=== PATIENT | female | born 1965 | race Caucasian/White ===

== ENCOUNTER → 2022-07-25 | Outpatient (CLI) | payer OTHER ==
[2022-07-25 16:17] LABS: HEMOGLOBIN A1c 5.3 %
[2022-07-25 18:13] LABS: ALT/SGPT 34 U/L (12-78); BILIRUBIN,TOTAL 0.3 MG/DL (0.2-1.0); BLOOD UREA NITROGEN 22 MG/DL (7-18); CALCIUM LEVEL 9.6 MG/DL (8.5-10.1); CARBON DIOXIDE LEVEL 32 MEQ/L (21-32); CHLORIDE LEVEL 104 MEQ/L (98-107); CHOLESTEROL LEVEL 183 MG/DL (<200); CHOLESTEROL RISK RATIO 3.588 (<5); CREATININE FOR GFR 1.12 MG/DL (0.55-1.30); FREE T4 0.96 NG/DL (0.76-1.46); GLUCOSE, FASTING 99 MG/DL (70-100); HDL CHOLESTEROL 51 MG/DL (>40); LDL CHOLESTEROL 93 MG/DL (<100); NON-HDL-C 132 MG/DL; POTASSIUM SERUM 4.5 MEQ/L (3.5-5.1); SODIUM LEVEL 138 MEQ/L (136-145); TOTAL PROTEIN 7.4 GM/DL (6.4-8.2); TRIGLYCERIDES LEVEL 194 MG/DL (<150)
[2022-07-25 19:55] LABS: HEPATITIS C VIRUS ABY INDEX < 0.0 INDEX (<0.8)
== END ==
LOC: M PLALAB 12:59
PROVIDERS: ATTEND Family Medicine
DX: E66.9 Obesity, unspecified (principal); R03.0 Elevated blood-pressure reading, without diagnosis of hypertension

== ENCOUNTER → 2022-08-21 | Outpatient (CLI) | payer OTHER | LOC: M WHC 07:28 | PROVIDERS: ATTEND Family Medicine | DX: Z12.31 Encounter for screening mammogram for malignant neoplasm of breast (principal) ==

== ENCOUNTER → 2023-03-12 | Outpatient (CLI) | payer OTHER ==
[2023-03-12 14:56] LABS: CALCIUM LEVEL 9.6 MG/DL (8.3-10.6); CREATININE FOR GFR 1.04 MG/DL (0.55-1.30); CREATININE, URINE 154.4 MG/DL; GLOMERULAR FILTRATION RATE 57.5 (>45); MALB URINE SIEMENS < 3.0 MG/L; MAU/CREAT RATIO 1.9 MCG/MG (0.0-30.0); POTASSIUM SERUM 5.4 MMOL/L (3.5-5.1)
== END ==
LOC: M PLALAB 09:49
PROVIDERS: ATTEND Family Medicine
DX: N18.31 Chronic kidney disease, stage 3a (principal)

== ENCOUNTER 2023-06-28 12:21 | Emergency (ER) | payer OTHER ==
[~2023-06-28] VITALS: Ht 162.6 cm; Wt 104.6 kg
[2023-06-28] MEDS ORDERED: HYDR12CA PO (12:30)
[2023-06-28] MEDS ORDERED: LEXA1TAB2 PO ×2 (12:30)
[2023-06-28] MEDS ORDERED: BUSP10TA79 PO (12:30)
[2023-06-28] MEDS ORDERED: OMEP-173 PO (12:30)
[2023-06-28] MEDS ORDERED: BUPR150T12 PO (12:30)
[2023-06-28] MEDS ORDERED: HYDR50TA70 (12:30)
[2023-06-28 13:30] LABS: HEMATOCRIT 40.9 % (36.0-47.0); HEMOGLOBIN 13.7 g/dl (12.0-15.5); MEAN CORPUSCULAR HEMOGLOBIN 30.1 pg (27.0-33.0); MEAN CORPUSCULAR HGB CONC 33.5 g/dl (32.0-36.5); MEAN CORPUSCULAR VOLUME 89.9 fl (80.0-96.0); PLATELET COUNT, AUTOMATED 385 10^3/uL (150-450); RED BLOOD COUNT 4.55 10^6/uL (4.00-5.40); WHITE BLOOD COUNT 10.5 10^3/uL (4.0-10.0)
[2023-06-28 13:52] LABS: ERYTHROCYTE SEDIMENTATION RATE 83 mm/hr (0-30)
[2023-06-28 13:54] LABS: HEMOGLOBIN A1c 5.7 % (4.0-6.0)
[2023-06-28 14:01] LABS: BLOOD UREA NITROGEN 10 MG/DL (9-23); CALCIUM LEVEL 8.9 MG/DL (8.3-10.6); CARBON DIOXIDE LEVEL 32 MMOL/L (20-31); CHLORIDE LEVEL 98 MMOL/L (98-107); CREATININE FOR GFR 0.79 MG/DL (0.55-1.30); GLOMERULAR FILTRATION RATE > 60.0 (>45); GLUCOSE, FASTING 112 MG/DL (74-106); POTASSIUM SERUM 5.2 MMOL/L (3.5-5.1); SODIUM LEVEL 137 MMOL/L (136-145)
[2023-06-28] MEDS ORDERED: NS 1,000 ML IV ONE (14:25)
[2023-06-28] MEDS ORDERED: VANCOMYCIN HCL 2,000 MG in D5W 500 ML IV ONE (15:15)
[2023-06-28] MEDS ORDERED: CEPH500C PO (16:00)
[2023-06-28] MEDS ORDERED: BACT800T5 PO (16:00)
[2023-06-28] MEDS ORDERED: VANCOMYCIN HCL 1,000 MG, VIAL MATE ADAPTER 1 EACH in D5W 250 ML IV ONE ×2 (16:00→17:00)
[2023-06-28 16:01] LABS: URIC ACID 6.2 MG/DL (3.1-7.8)
[2023-06-28] MEDS ORDERED: BOOSTRIX VACCINE (TETANUS/DIPHTH/ACEL. PERTUSSIS) 0.5ML SYR IM ONE (16:50)
[2023-06-28 18:48] VITALS: BP 136/87; TEMP 98.3; O2SAT 100
== END 2023-06-28 18:53 | disposition home or self-care (01) ==
LOC: M ED 12:21
DX: L03.031 Cellulitis of right toe (principal); L03.115 Cellulitis of right lower limb; Z79.899 Other long term (current) drug therapy

== ENCOUNTER 2023-06-30 15:21 | Inpatient (IN) | payer OTHER ==
[~2023-06-30] VITALS: Ht 162.6 cm; Wt 105.1 kg
[~2023-06-30 15:21] MED LIST: BACT800T5 PO; BUPR150T12 PO; BUSP10TA79 PO; CEPH500C PO; HYDR12CA PO; HYDR50TA70; LEXA1TAB2 PO; OMEP-173 PO
[2023-06-30] MEDS ORDERED: MED REC IN PROGRESS XX SCH (16:05)
[2023-06-30 16:27] LABS: BASO # 0.1 10^3/uL (0.0-0.2); BASO % 0.5 % (0.0-1.0); EOS # 0.2 10^3/uL (0.0-0.5); EOS % 1.7 % (0.0-3.0); HEMATOCRIT 39.8 % (36.0-47.0); HEMOGLOBIN 13.3 g/dl (12.0-15.5); LYMPH # 2.2 10^3/uL (1.5-5.0); LYMPH % 22.2 % (24.0-44.0); MEAN CORPUSCULAR HEMOGLOBIN 30.3 pg (27.0-33.0); MEAN CORPUSCULAR HGB CONC 33.4 g/dl (32.0-36.5); MEAN CORPUSCULAR VOLUME 90.7 fl (80.0-96.0); MONO # 0.8 10^3/uL (0.0-0.8); MONO % 7.6 % (2.0-8.0); NEUTROPHILS # 6.5 10^3/uL (1.5-8.5); PLATELET COUNT, AUTOMATED 491 10^3/uL (150-450); RED BLOOD COUNT 4.39 10^6/uL (4.00-5.40); WHITE BLOOD COUNT 10.1 10^3/uL (4.0-10.0)
[2023-06-30] MEDS ORDERED: VANCOMYCIN HCL 2,000 MG in D5W 500 ML IV ONE (16:30)
[2023-06-30] MEDS ORDERED: CEPH500C PO (16:36)
[2023-06-30] MEDS ORDERED: HOME MED LIST COMPLETE! XX SCH (16:45)
[2023-06-30 16:49] LABS: ALBUMIN 3.2 G/DL (3.2-5.2); BILIRUBIN,DIRECT 0.1 MG/DL (<0.4); BILIRUBIN,TOTAL 0.3 MG/DL (0.3-1.2); C REACTIVE PROTEIN QUANTITATIV 2.2 MG/DL (<1.0); CALCIUM LEVEL 9.2 MG/DL (8.3-10.6); CREATININE FOR GFR 1.06 MG/DL (0.55-1.30); GLOMERULAR FILTRATION RATE 56.3 (>45); POTASSIUM SERUM 3.7 MMOL/L (3.5-5.1); TOTAL PROTEIN 6.9 G/DL (5.7-8.2)
[2023-06-30 16:58] LABS: ERYTHROCYTE SEDIMENTATION RATE 84 mm/hr (0-30)
[2023-06-30] MEDS ORDERED: VANCOMYCIN HCL 1,000 MG, VIAL MATE ADAPTER 1 EACH in D5W 250 ML IV ONE ×2 (17:00→18:00)
[2023-06-30] MEDS ORDERED: ACETAMINOPHEN TAB 650MG DOSE (2X325MG) PO PRN (17:55)
[2023-06-30] MEDS ORDERED: MAALOX 30 ML SUSP *UDC PO PRN (17:55)
[2023-06-30] MEDS ORDERED: MOM 30ML SUSPENSION UDC PO PRN (17:55)
[2023-06-30 20:08] VITALS: BP 135/78; TEMP 97.9; O2SAT 97
[2023-06-30] MEDS: buPROPion **XL** TABLET 150MG (WELLBUTRIN XL) PO SCH (23:08)
[2023-07-01] MEDS ORDERED: VANCOMYCIN HCL 750 MG, VIAL MATE ADAPTER 1 EACH in D5W 250 ML IV SCH (02:00)
[2023-07-01] MEDS ORDERED: VANCOMYCIN HCL 500 MG in D5W MINI-BAG PLUS 100 ML IV SCH (03:00)
[2023-07-01 05:49] VITALS: BP 122/72; TEMP 97.7; O2SAT 99
[2023-07-01] MEDS: busPIRone 10 MG TAB PO SCH (08:44)
[2023-07-01] MEDS: ESCITALOPRAM OXALATE 10 MG TAB (LEXAPRO) PO SCH (08:44)
[2023-07-01] MEDS: buPROPion **XL** TABLET 150MG (WELLBUTRIN XL) PO SCH ×2 (08:44→20:07)
[2023-07-01] MEDS: OMEPRAZOLE 20MG CAP PO SCH (08:44)
[2023-07-01] MEDS: hydroCHLOROthiazide 12.5 MG CAPSULE PO SCH (08:45)
[2023-07-01] MEDS: ENOXAPARIN 40MG/0.4ML SYRINGE (J1650 PER 10MG) SC SCH (08:45)
[2023-07-01 09:38] LABS: BLOOD UREA NITROGEN 10 MG/DL (9-23); CALCIUM LEVEL 8.9 MG/DL (8.3-10.6); CARBON DIOXIDE LEVEL 33 MMOL/L (20-31); CHLORIDE LEVEL 102 MMOL/L (98-107); CREATININE FOR GFR 0.92 MG/DL (0.55-1.30); GLOMERULAR FILTRATION RATE > 60.0 (>45); GLUCOSE, FASTING 108 MG/DL (74-106); POTASSIUM SERUM 3.8 MMOL/L (3.5-5.1); SODIUM LEVEL 142 MMOL/L (136-145)
[2023-07-01] MEDS: ceFAZolin SOD 2 GM in IV 1 EA IV SCH ×2 (10:49→17:29)
[2023-07-01] MEDS: SANTYL OINT 30GM TOP SCH (13:19)
[2023-07-01 19:27] VITALS: BP 121/71; TEMP 98.2; O2SAT 99
[2023-07-02] MEDS: ceFAZolin SOD 2 GM in IV 1 EA IV SCH ×2 (03:09→11:10)
[2023-07-02 06:36] VITALS: BP 145/94; TEMP 97.7; O2SAT 99
[2023-07-02] MEDS: ESCITALOPRAM OXALATE 10 MG TAB (LEXAPRO) PO SCH (08:19)
[2023-07-02] MEDS: hydroCHLOROthiazide 12.5 MG CAPSULE PO SCH (08:19)
[2023-07-02] MEDS: busPIRone 10 MG TAB PO SCH (08:19)
[2023-07-02] MEDS: buPROPion **XL** TABLET 150MG (WELLBUTRIN XL) PO SCH (08:20)
[2023-07-02] MEDS: OMEPRAZOLE 20MG CAP PO SCH (08:20)
[2023-07-02] MEDS: SANTYL OINT 30GM TOP SCH (08:21)
[2023-07-02] MEDS: ENOXAPARIN 40MG/0.4ML SYRINGE (J1650 PER 10MG) SC SCH (08:21)
[2023-07-02 08:36] LABS: BASO # 0.1 10^3/uL (0.0-0.2); BASO % 0.5 % (0.0-1.0); EOS # 0.1 10^3/uL (0.0-0.5); HEMATOCRIT 38.8 % (36.0-47.0); HEMOGLOBIN 12.5 g/dl (12.0-15.5); LYMPH # 2.1 10^3/uL (1.5-5.0); LYMPH % 22.5 % (24.0-44.0); MEAN CORPUSCULAR HEMOGLOBIN 29.6 pg (27.0-33.0); MEAN CORPUSCULAR HGB CONC 32.2 g/dl (32.0-36.5); MEAN CORPUSCULAR VOLUME 91.7 fl (80.0-96.0); MONO # 0.6 10^3/uL (0.0-0.8); MONO % 6.8 % (2.0-8.0); NEUTROPHILS # 6.2 10^3/uL (1.5-8.5); NEUTROPHILS % 67.3 % (36.0-66.0); PLATELET COUNT, AUTOMATED 440 10^3/uL (150-450); RED BLOOD COUNT 4.23 10^6/uL (4.00-5.40); WHITE BLOOD COUNT 9.2 10^3/uL (4.0-10.0)
[2023-07-02] MEDS ORDERED: BACT800T5 PO (10:38)
== END 2023-07-02 12:10 | disposition home or self-care (01) | DRG 380 ==
LOC: M ED 15:21 → M ED INP 17:55 → M MS5PR 20:15
PROVIDERS: ADMIT Student in an Organized Health Care Education/Training Program; ATTEND Student in an Organized Health Care Education/Training Program
DX: L97.519 Non-pressure chronic ulcer of other part of right foot with unspecified severity (principal); R78.81 Bacteremia; I12.9 Hypertensive chronic kidney disease with stage 1 through stage 4 chronic kidney disease, or unspecified chronic kidney disease; B95.62 Methicillin resistant Staphylococcus aureus infection as the cause of diseases classified elsewhere; L03.115 Cellulitis of right lower limb; N18.9 Chronic kidney disease, unspecified; F32.A Depression, unspecified; F41.9 Anxiety disorder, unspecified; E66.9 Obesity, unspecified; Z20.822 Contact with and (suspected) exposure to COVID-19; Z79.899 Other long term (current) drug therapy; L97.529 Non-pressure chronic ulcer of other part of left foot with unspecified severity

== ENCOUNTER → 2024-05-30 | Outpatient (CLI) | payer OTHER | LOC: M WHC 07:42 | PROVIDERS: ATTEND Family Medicine | DX: Z12.31 Encounter for screening mammogram for malignant neoplasm of breast (principal) ==

== ENCOUNTER → 2024-06-02 | Outpatient (REF) | payer OTHER ==
[2024-06-07 12:26] LABS: HPV APTIMA Detected (Not Detected)
== END ==
LOC: M SFHCPLAZ 17:02
PROVIDERS: ATTEND Family Medicine
DX: Z12.4 Encounter for screening for malignant neoplasm of cervix (principal)

== ENCOUNTER → 2024-08-08 | Outpatient (CLI) | payer OTHER | LOC: M RAD 07:36 | PROVIDERS: ATTEND Surgery | DX: E07.9 Disorder of thyroid, unspecified (principal) ==

== ENCOUNTER → 2024-08-30 | Outpatient (CLI) | payer OTHER ==
[~2024-08-30] MED LIST changes: +ISOVUE-370 76% 100ML VIAL As Ordered ONE
== END ==
LOC: M RAD 13:52
PROVIDERS: ATTEND Otolaryngology
DX: R22.1 Localized swelling, mass and lump, neck (principal)
CPT/HCPCS: 70491; Q9967

== ENCOUNTER → 2024-12-21 | Outpatient (CLI) | payer OTHER ==
[~2024-12-21] MED LIST changes: -ISOVUE-370 76% 100ML VIAL As Ordered ONE
[2024-12-21 14:42] LABS: BILIRUBIN,TOTAL 0.4 MG/DL (0.3-1.2); CALCIUM LEVEL 9.7 MG/DL (8.3-10.6); CHOLESTEROL RISK RATIO 3.92 (<5); CREATININE FOR GFR 1.13 MG/DL (0.55-1.30); GLOMERULAR FILTRATION RATE 52.1 (>45); HDL CHOLESTEROL 45.6 MG/DL (>40); LDL CHOLESTEROL 80.2 MG/DL (<100); NON-HDL-C 133.4 MG/DL; POTASSIUM SERUM 4.5 MMOL/L (3.5-5.1); TOTAL PROTEIN 7.4 G/DL (5.7-8.2)
[2024-12-21 14:48] LABS: HEMOGLOBIN A1c 5.2 % (4.0-6.0)
== END ==
LOC: M PLALAB 11:04
PROVIDERS: ATTEND Family Medicine
DX: I12.9 Hypertensive chronic kidney disease with stage 1 through stage 4 chronic kidney disease, or unspecified chronic kidney disease (principal); N18.31 Chronic kidney disease, stage 3a; E66.9 Obesity, unspecified

== ENCOUNTER 2024-12-22 09:33 | Day surgery (SDC) | payer OTHER ==
[~2024-12-22] VITALS: Ht 162.6 cm; Wt 109.2 kg
[2024-12-22] MEDS ORDERED: LR 1,000 ML IV SCH (10:15)
[2024-12-22] MEDS ORDERED: fentaNYL 100 MCG/2 ML INJECTION As Ordered ONE (14:02)
[2024-12-22] MEDS ORDERED: MIDAZOLAM INJ 2MG/2ML VIAL As Ordered ONE (14:02)
[2024-12-22] MEDS ORDERED: ONDANSETRON 4MG 2ML VIAL As Ordered ONE (14:02)
[2024-12-22] MEDS ORDERED: LIDOCAINE 2% 100MG/5ML SDV (FOR ANES.) As Ordered ONE (14:03)
[2024-12-22] MEDS ORDERED: ROCURONIUM BROMIDE 50MG/5ML VIAL As Ordered ONE (14:03)
[2024-12-22] MEDS ORDERED: propofoL 200 MG/20 ML VIAL As Ordered ONE (14:03)
[2024-12-22] MEDS ORDERED: SUGAMMADEX SODIUM 500 MG/5 ML VIAL (BRIDION) As Ordered ONE (14:03)
[2024-12-22] MEDS ORDERED: ACETAMINOPHEN 1000MG/100ML IV BAG As Ordered ONE (14:03)
[2024-12-22] MEDS: LIDOCAINE W/EPINEPHRINE 1% 20ML VIAL As Ordered ONE (14:48)
[2024-12-22] MEDS: POLYSPORIN TOPICAL OINTMENT 15GM As Ordered ONE (15:18)
[2024-12-22] MEDS ORDERED: ONDANSETRON 4MG 2ML VIAL IV PRN (15:40)
[2024-12-22] MEDS ORDERED: oxyCODONE 5MG TAB PO PRN (15:40)
[2024-12-22] MEDS ORDERED: fentaNYL 100 MCG/2 ML INJECTION IV PRN (15:40)
[2024-12-22] MEDS ORDERED: MORPHINE 2 MG/ML 1ML VIAL IV PRN (15:40)
[2024-12-22 17:00] VITALS: BP 148/75; TEMP 98; O2SAT 95
== END 2024-12-22 17:09 | disposition home or self-care (01) ==
LOC: M SDC 09:33
PROVIDERS: ATTEND Otolaryngology
DX: D17.0 Benign lipomatous neoplasm of skin and subcutaneous tissue of head, face and neck (principal); K21.9 Gastro-esophageal reflux disease without esophagitis; F32.A Depression, unspecified; F41.9 Anxiety disorder, unspecified; Z79.899 Other long term (current) drug therapy
CPT/HCPCS: 21552; 88304; 93005; J0131; J1100; J2250; J2405; J3010

== ENCOUNTER → 2025-06-15 | Outpatient (REF) | payer OTHER ==
[~2025-06-15] MED LIST changes: +HYDR12.510 PO; -HYDR12CA PO
[2025-06-17 11:57] LABS: HPV APTIMA Not Detected (Not Detected)
== END ==
LOC: M SFHCPLAZ 12:48
PROVIDERS: ATTEND Family Medicine
DX: Z12.4 Encounter for screening for malignant neoplasm of cervix (principal); R87.610 Atypical squamous cells of undetermined significance on cytologic smear of cervix (ASC-US)